=== PATIENT | male | born 1985 | race Caucasian/White ===

== ENCOUNTER 2020-01-15 11:26 | Emergency (ER) | payer MEDICAID ==
[~2020-01-15] VITALS: Ht 188 cm; Wt 146.2 kg
[~2020-01-15 11:26] MED LIST: NOCURR
[2020-01-15] MEDS ORDERED: AMLO-258 PO (11:58)
[2020-01-15] MEDS ORDERED: SERT50TA12 PO (11:58)
[2020-01-15 12:07] VITALS: BP 160/97
== END 2020-01-15 12:27 | disposition home or self-care (01) ==
LOC: EMS 11:50
DX: F41.0 Panic disorder [episodic paroxysmal anxiety] (principal)
CPT/HCPCS: 99283; Z7502